=== PATIENT | female | born 1945 | race Caucasian/White ===

== ENCOUNTER 2017-10-03 15:13 | Outpatient (CLI) | payer MEDICARE, BC | END 2017-10-03 15:14 | disposition home or self-care (01) | LOC: BICRAD 15:13 | PROVIDERS: ATTEND Internal Medicine Rheumatology | DX: M47.812 Spondylosis without myelopathy or radiculopathy, cervical region (principal); M17.0 Bilateral primary osteoarthritis of knee; M89.9 Disorder of bone, unspecified | CPT/HCPCS: 72100; 73565 ==

== ENCOUNTER 2017-12-11 15:33 | Outpatient (CLI) | payer MEDICARE, BC ==
[~2017-12-11 15:33] MED LIST: Gadobenate Dimeglumine 529 MG/1 ML (20ML VIAL) ONE
--- NOTE | 2017-12-11 16:54 | MRI ---
MRI OF THE LUMBAR SPINE NONCONTRAST: History: Low back pain. FINDINGS: Images including the retroperitoneum show cysts of the kidneys. The conus medullaris has a normal minor earance. Vertebral body heights are maintained. 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 There is minimal degenerative spondylolisthe sis at the lumbosacral junction. At the L4-5 level, there is minimal disc bulge. Posterior ligamentous thickening and facet joint hype rtrophy results in mild stenosis of the central canal and moderate stenosis of each neural foramen. There is mild foraminal stenosis at the L3-4 level. IMPRESSION: Mild to moderate degenerative changes of the lower lumbar spine as detailed above, with stenoses grea test at the L4-5 level. Clinical correlation regarding pain at each L4 dermatome is required. POS: [facility]
--- NOTE | 2017-12-11 17:32 | MRI ---
CERVICAL SPINE MRI WITH AND WITHOUT CONTRAST: Clinical history: Cervical radiculopathy. FINDINGS: There is susceptibility artifact related to anterior fusion at the C5-6 segments. There is no acute m arrow edema. Craniocervical junction is intact. Evaluation of the cervical spinal cord reveals no int rinsic intramedullary, pathologic enhancement or obvious expansile lesion. No significant central canal stenosis at C1-2 or C2-3 levels. C3-4: There is a broad based disc osteophyte and a slight degree of retrolisthesis of C3 on C4. This results in a right asymmetric mild degree of effacement of the ventral thecal sac content. Mild right foraminal narrowing is present. No high grade left foraminal stenosis. C4-5: Central disc osteophyte effaces the ventral thecal sac. There is susceptibility from adjacent h ardware. There is mild left foraminal narrowing. No high grade right foraminal stenosis. C5-6: There is a left asymmetric osteophyte ridge with a focal osteophyte at the left paracentral zon e which does result in mass effect upon the left hemicord with cord flattening, moderate in degree. T here is moderate left foraminal stenosis. No high grade right foraminal stenosis. C6-7: Left asymmetric disc osteophyte complex is present. Suggestion of a superimposed left subarticu lar disc protrusion. This crowds the adjacent left nerve root with moderate narrowing of the left sub articular zone and mild to moderate left foraminal narrowing. No high grade right foraminal stenosis. There is moderate stenosis of the central canal with ventral cord effacement. C7-T1: No high grade central canal or foraminal stenosis. IMPRESSION: Multilevel degenerative change of the post-operative cervical spine as outline above, which is most p ronounced at the operative site of C5-6 with associated left hemicord mass effect, as well as the sub jacent C6-7 level with associated ventral cord flattening/mass effect. POS: [facility]
--- NOTE | 2017-12-11 18:46 | RAD ---
THREE VIEWS CERVICAL SPINE INCLUDING FLEXION AND EXTENSION VIEWS: Date: 12-11-17 History: Cervical radiculopathy. History of prior surgery. Comparison: 06-09-14 FINDINGS: There has been interval post-surgical changes related to anterior cervical fusion with an anterior pl ate and screws transfixing C5-6 level with intradiscal prosthesis in place. No hardware complication is seen. Osteophytes are seen anteriorly at the C3-4 and C4-5 as well as the C6-7 levels. There is mi ld narrowing of the C3-4 intervertebral disc space. C1 to the cervicothoracic junction is seen on the lateral view and there is no evidence of subluxation. No obvious fracture is seen on provided latera l images. No abnormal translational motion is seen between the flexion and extension views of the cer vical spine. The prevertebral soft tissues are within normal limits. IMPRESSION: 1. Post-surgical changes related to anterior cervical fusion at the C5-6 level. 2. Degenerative changes above and below the level of the post-surgical change. 3. No fracture or subluxation seen on the provided images. POS: [facility]
--- NOTE | 2017-12-11 18:50 | RAD ---
FOUR VIEWS LUMBAR SPINE: Date: 12-11-17 History: Lumbar radiculopathy. FINDINGS: There are five non-rib bearing vertebral bodies. Vertebral body heights are within normal limits. The re is slight grade I anterolisthesis of L5 on S1 with slight narrowing of the intervertebral disc spa ce at this level as well. The remaining intervertebral disc spaces are within normal limits. Facet de generative changes are seen in the lower lumbar spine. There is no abnormal translational motion seen between the flexion and extension views. Vascular calcifications are seen abdominal aorta. Radiopaqu e suture material overlies the left abdomen. IMPRESSION: 1. Degenerative changes in the lower lumbar spine with grade I anterolisthesis of L5 on S1. No abnorm al translational motion is seen between the flexion and extension views of the lumbar spine. POS: [facility]
== END 2017-12-11 15:34 | disposition home or self-care (01) ==
LOC: MRI 15:33
PROVIDERS: ATTEND Physician Assistant Surgical
DX: M47.26 Other spondylosis with radiculopathy, lumbar region (principal); M47.22 Other spondylosis with radiculopathy, cervical region; Z98.890 Other specified postprocedural states; Z98.1 Arthrodesis status
CPT/HCPCS: 72050; 72120; 72148; 72156; 82565; A9579

== ENCOUNTER 2017-12-22 08:26 | Outpatient (CLI) | payer MEDICARE, BC ==
--- NOTE | 2017-12-22 09:55 | CT ---
CT CERVICAL SPINE WITHOUT CONTRAST: DATE: 12/22/17. COMPARISON: None. HISTORY: Cervical radiculopathy, neck pain between shoulder blades, bilateral hand numbness. TECHNIQUE: Serial axial CT imaging at 2 mm intervals from the skull base through the lung apices without contras t. Coronal and sagittal reformatted imaging obtained. FINDINGS: The imaged lung apices are unremarkable. Evaluation for central canal and/or neural foraminal stenosis is limited on routine CT. There is polypoid [id number] thickening of the maxillary sinus on the left. The C1 ring is intact. The craniocervical junction is within normal limits. There is mild degenerative change at the atlant oaxial interspace. The occipital condyles, dens, and C1-2 articulation demonstrate no acute findings. At C5-6, there is anterior diskectomy and fusion hardware present. No evidence of a hardware failure is noted. There is no significant anterolisthesis or retrolisthesis seen. No prevertebral soft tissue abnormal ity noted. C2-3: No osseous cause of significant central canal or neural foraminal stenosis. C3-4: Mild bilateral facet and uncovertebral osteophyte formation, right greater than left. Mild di sk space narrowing and anterior osteophyte formation. No osseous cause of significant central canal or neural foraminal stenosis. C4-5: Anterior osteophyte formation noted. No osseous cause of significant central canal or neural foraminal stenosis. C5-6: Mild posterior osteophyte noted in left paracentral region. Mild bilateral uncovertebral oste ophyte formation noted. No osseous cause of significant central canal or neural foraminal stenosis. C6-7: No osseous cause of significant central canal or neural foraminal stenosis. C7-T1: No osseous cause of significant central canal or neural foraminal stenosis. No acute fracture or dislocation. No suspicious lytic or blastic bone lesion. A medialized retropharyngeal right internal carotid artery noted. IMPRESSION: Multilevel degenerative change noted. POS: [facility]
== END 2017-12-22 08:27 | disposition home or self-care (01) ==
LOC: TBSIIMAG 08:26
PROVIDERS: ATTEND Surgery
DX: M47.22 Other spondylosis with radiculopathy, cervical region (principal)
CPT/HCPCS: 72125

== ENCOUNTER 2018-02-27 13:00 | Outpatient (CLI) | payer MEDICARE, BC ==
[2018-02-27 14:28] LABS: Hemoglobin 11.3 g/dL (12.0-16.0); Mean Corpuscular HGB CONC 31.3 g/dL (32.0-36.0); Mean Corpuscular Hemoglobin 28.8 pg (27.0-31.0); Mean Corpuscular Volume 91.8 fl (81.0-99.0); Platelet Count 223 thou/uL (130-400); Red Blood Cell (RBC) Count 3.93 mill/uL (4.20-5.40); White Blood Cell (WBC) Count 7.3 thou/uL (4.8-10.8)
[2018-02-27 14:42] LABS: PTT 25.4 SEC (22.9-36.1); Prothrombin Time 12.8 SEC (12.0-14.7)
[2018-02-27 14:43] LABS: Anion Gap 11 mmol/L (10-20); BUN (Urea Nitrogen) 14 mg/dL (9.8-20.1); Calc. Creatinine Clearance 0 mL/min (70-130); Calcium 8.9 mg/dL (7.8-10.44); Carbon Dioxide 26 mmol/L (23-31); Chloride 108 mmol/L (98-107); Estimated GFR-MDRD 66; Glucose 91 mg/dL (83-110); Potassium 4.1 mmol/L (3.5-5.1); Sodium 141 mmol/L (136-145)
--- NOTE | 2018-02-27 16:46 | EKG ---
Test Reason : Blood Pressure : / mmHG Vent. Rate : 070 BPM Atrial Rate : 070 BPM P-R Int : 172 ms QRS Dur : 086 ms QT Int : 416 ms P-R-T Axes : 042 038 025 degrees QTc Int : 449 ms Normal sinus rhythm Cannot rule out Anterior infarct , age undetermined ( may be lead placement artifact ) Abnormal ECG When compared with ECG of 07-JUL-2014 14:18, No significant change was found Confirmed by DR. Shannan ANNE ([id number]) on 02/27/2018 4:46:04 PM Referred By: ROSA Confirmed By:DR. Shannan ANNE
== END 2018-02-27 13:01 | disposition home or self-care (01) ==
LOC: LABBT 13:00
PROVIDERS: ATTEND Surgery
DX: Z01.818 Encounter for other preprocedural examination (principal); M54.12 Radiculopathy, cervical region
CPT/HCPCS: 80048; 85027; 85610; 85730; 93005; 93010

== ENCOUNTER 2018-02-27 13:15 | Inpatient (IN) | payer MEDICARE, BC ==
[2018-02-27 13:23] VITALS: BMI 26.5
[2018-03-08] MEDS ORDERED: Fentanyl 100 MCG/2 ML VIAL ONE (06:13)
[2018-03-08] MEDS ORDERED: Ondansetron HCl/PF 4 MG/2 ML Vial ONE ×2 (06:14→13:04)
[2018-03-08] MEDS ORDERED: Midazolam HCl 2 mg/2 ml Vial ONE ×2 (06:23→06:51)
[2018-03-08] MEDS ORDERED: CEFAZOLIN/Water 2 GM/20 ML SYRINGE ONE (06:26)
[2018-03-08] MEDS ORDERED: Thrombin 5000 UNITS/5 ML VIAL ONE (06:29)
[2018-03-08] MEDS ORDERED: Sodium Chloride 0.9% 10 ML ONE (06:29)
[2018-03-08] MEDS ORDERED: Milk Of Magnesia 30 ML UDCUP PO PRN (10:21)
[2018-03-08] MEDS ORDERED: Mag-Al 1200 mg/1200 mg/30 ML UDCUP PO PRN (10:21)
[2018-03-08] MEDS ORDERED: Fleet Enema 133 ML BOT PR PRN (10:21)
[2018-03-08] MEDS ORDERED: Bisacodyl 10 MG SUPP PR PRN (10:21)
[2018-03-08] MEDS ORDERED: HYDROcodone/Acetaminophen 7.5/325 mg Tablet PO PRN (10:21)
[2018-03-08] MEDS ORDERED: Acetaminophen 325 MG TAB PO PRN (10:21)
[2018-03-08] MEDS ORDERED: tiZANidine HCl 4 MG TAB PO PRN (10:21)
[2018-03-08] MEDS ORDERED: Cyclobenzaprine 10 MG TAB PO PRN (10:24)
[2018-03-08] MEDS ORDERED: Promethazine HCl 25 MG/ML VIAL SLOW IVP PRN (10:27)
[2018-03-08] MEDS ORDERED: Promethazine HCl 25 MG/ML VIAL IM PRN (10:27)
[2018-03-08] MEDS ORDERED: Ondansetron HCl/PF 4 MG/2 ML Vial IVP PRN (10:27)
--- NOTE | 2018-03-08 11:50 | OP ---
DATE OF PROCEDURE: 03/08/2018 OR: OR #11. WOUND TYPE: Type 1 wound. SURGEON: Gino Allan M.D. TECHNICAL TESTING ENGINEER: Yonis Godinez PA-C PREPROCEDURE DIAGNOSES: Distal adjacent segment stenosis with history of C5-C6 ACDF, now with recurr ent neck and arm pain. POSTPROCEDURE DIAGNOSES: Distal adjacent segment stenosis with history of C5-C6 ACDF, now with recur rent neck and arm pain. PROCEDURE: 1. Reopening of a prior C5-C6 wound with exploration of spinal fusion C5-C6 and removal of C5-C6 floresita te. 2. Anterior C6-C7 diskectomy for decompression of spinal cord and nerve roots with placement of inte rbody spacer packed with local bone autograft obtained from same incision and allograft for arthrodes is. 3. Anterior cervical plate and screw fixation, C6-C7. 4. Use of operative microscope for microdissection. PROCEDURE: After informed consent was obtained from the patient, the patient brought to OR. Proper patient pause and identification was carried out. She was placed in excellent endotracheal anesthesi a and positioned supine on the OR table. The prior right C5-C6 wound was identified and this region was sterilely cleansed, prepared, and draped. Proper patient pause and identification was again [place] ied out. The wound was then opened with a combination of sharp, monopolar and blunt dissection proce eded through scar and identified planes to allow us to approach the C5-C6 segment. The plate was rishi ntified and the screws removed and the plate removed. I then assessed the fusion at C5-C6 and it con firmed that the CT and x-rays demonstrated that the patient had fused and had no evidence of abnormal movement at C5-C6. I then turned our attention to the C6-C7 with retractors placed. Microscope was brought in the field and distraction at C6-C7 then occurred. A diskectomy was performed at C6-C7 wi th excellent decompression of the common dural tube and the nerve roots. Interbody spacer of appropr iate dimension was then placed at C6-C7 for fusion. This was packed with local bone autograft obtain ed from same incision and allograft for arthrodesis. I then removed the microscope and a plate and screw fixation at C6-C7 then occurred. Copious irrigation occurred throughout. The wound was then c losed in anatomic layers following meticulous hemostasis over a drain. The patient then emerged from anesthesia.
[2018-03-08] MEDS: Morphine 4 MG/ML VIAL SLOW IVP PRN ×2 (12:26→16:08)
[2018-03-08] MEDS: Sodium Chloride 0.9% 1,000 ML IV SCH (12:27)
[2018-03-08] MEDS ORDERED: PROPOFOL 200 MG/20 ML VIAL ONE (13:04)
[2018-03-08] MEDS ORDERED: Lidocaine 1% PF 5 ML VIAL ONE (13:04)
[2018-03-08] MEDS ORDERED: Glycopyrrolate 0.2 MG/ML 5 ML SYRINGE ONE (13:04)
[2018-03-08] MEDS ORDERED: Dexamethasone 20 MG/5 ML VIAL ONE (13:04)
[2018-03-08] MEDS: CEFAZOLIN/Water 2 GM/20 ML SYRINGE SLOW IVP SCH (16:08)
[2018-03-08] MEDS: traMADol HCl 50 MG TAB PO PRN (18:23)
[2018-03-08] MEDS ORDERED: traZODone HCl 50 MG TAB PO SCH (21:00)
[2018-03-08] MEDS ORDERED: TRAZODONE HCL PO SCH (21:00)
[2018-03-08] MEDS ORDERED: Simvastatin 5 MG TAB PO SCH (21:00)
[2018-03-09] MEDS: CEFAZOLIN/Water 2 GM/20 ML SYRINGE SLOW IVP SCH ×2 (00:30→09:23)
[2018-03-09] MEDS: traMADol HCl 50 MG TAB PO PRN ×2 (00:30→06:53)
[2018-03-09] MEDS ORDERED: Levothyroxine Sodium 75 MCG TAB PO SCH (06:00)
[2018-03-09] MEDS: Sodium Chloride 0.9% 1,000 ML IV SCH (06:52)
[2018-03-09 07:39] VITALS: BP 118/69; TEMP 98.2
[2018-03-09] MEDS ORDERED: Calcium Carbonate 500 MG TAB PO SCH (09:00)
[2018-03-09] MEDS ORDERED: Ipratropium Bromide 0.06% Nasal Inhaler 15ml EA NARE SCH (09:00)
[2018-03-09] MEDS ORDERED: Escitalopram Oxalate 20 mg Tablet PO SCH (09:00)
[2018-03-09] MEDS ORDERED: Fish Oil 1,000 MG CAP PO SCH (09:00)
[2018-03-09] MEDS ORDERED: Folic Acid 1 MG TAB PO SCH (09:00)
[2018-03-09] MEDS ORDERED: Multivit, Chewable SF 1 TAB PO SCH (09:00)
[2018-03-09] MEDS ORDERED: Stress 600 With Zinc 1 TAB PO SCH (09:00)
--- NOTE | 2018-03-09 13:56 | DIS ---
DATE OF ADMISSION: 03/08/2018 DATE OF DISCHARGE: 03/09/2018 DISCHARGE DIAGNOSIS: Include cervical stenosis with right arm radiculopathy. HISTORY: Ms. Benavides has postoperative day #1, having undergone revision ACDF including removal of floresita te at C5-C6 and new ACDF at C6-C7 with a new hardware at this level. The patient states that she has some numbness and tingling into the fingertips in the right hand, but the right upper extremity symp toms she experienced preoperatively has now completely resolved. She does have some hoarseness and s ome difficulty with swallowing, but is tolerating clear liquids and swallowing pills. She is wearing her collar as directed. Her drain output 20 mL and we will remove this and plan for discharge today . At the time of discharge, the patient was doing well postoperatively and pleased with her neurosur gical outcome. Appropriate outpatient followups were scheduled and patient's education was provided to the patient.
== END 2018-03-09 11:38 | disposition home or self-care (01) | DRG 473 ==
LOC: SURG A 03-08 05:35
PROVIDERS: ADMIT Surgery; ATTEND Surgery
PROC: 0RG10A0 Fusion of Cervical Vertebral Joint with Interbody Fusion Device, Anterior Approach, Anterior Column, Open Approach (ICD-10-PCS; principal; 2018-03-08)
PROC: 0RP104Z Removal of Internal Fixation Device from Cervical Vertebral Joint, Open Approach (ICD-10-PCS; 2018-03-08)
PROC: 0RB30ZZ Excision of Cervical Vertebral Disc, Open Approach (ICD-10-PCS; 2018-03-08)
PROC: 00NW0ZZ Release Cervical Spinal Cord, Open Approach (ICD-10-PCS; 2018-03-08)
PROC: 01N10ZZ Release Cervical Nerve, Open Approach (ICD-10-PCS; 2018-03-08)
DX: M48.02 Spinal stenosis, cervical region (principal); M54.12 Radiculopathy, cervical region; Z88.5 Allergy status to narcotic agent; Z79.899 Other long term (current) drug therapy
CPT/HCPCS: 76001; A4216; C1713; C1776; J1100; J2001; J2250; J2270; J2405; J2704; J3010; J3490

== ENCOUNTER 2018-04-18 10:09 | Outpatient (CLI) | payer MEDICARE, BC ==
--- NOTE | 2018-04-18 11:39 | RAD ---
FOUR VIEWS CERVICAL SPINE: History: Cervical radiculopathy. M54.12 Comparison: 06-26-15 FINDINGS: AP, lateral, swimmer's and open mouth odontoid view of the cervical spine obtained. Images demonstrate ACDF plates and screws fusing the C6-7 levels anteriorly. There is also old fusion of the C5-6 vertebral levels. Anterior osteophytes seen in the C3 and C4 levels. IMPRESSION: C5, C6, and C7 cervical spine fusion. No acute abnormalities seen. No significant interval changes no chet since the previous exam from 06-26-15. POS: [facility]
== END 2018-04-18 10:10 | disposition home or self-care (01) ==
LOC: TBSIIMAG 10:09
PROVIDERS: ATTEND Surgery
DX: M54.12 Radiculopathy, cervical region (principal); Z98.1 Arthrodesis status
CPT/HCPCS: 72040

== ENCOUNTER 2018-07-11 14:32 | Outpatient (CLI) | payer MEDICARE, BC | END 2018-07-11 14:33 | disposition home or self-care (01) | LOC: BICMRI 14:32 | PROVIDERS: ATTEND Psychiatry & Neurology Neurology | DX: R26.9 Unspecified abnormalities of gait and mobility (principal) | CPT/HCPCS: 70553; 82565; A9579 ==

== ENCOUNTER 2018-09-29 20:15 | Observation (INO) | payer MEDICARE, BC ==
[2018-09-29 21:08] LABS: #Eosinphils 0.1 thou/uL (0.0-0.7); #Lymphocytes 1.8 thou/uL (1.20-3.40); #Monocytes 0.4 thou/uL (0.11-0.59); #Neutrophils 3.6 thou/uL (1.40-6.50); %Basophils 0.8 % (0.0-1.0); %Eosinophils 1.1 % (0.0-10.0); %Lymphocytes 30.6 % (21.0-51.0); %Monocytes 6.7 % (0.0-10.0); %Neutrophils 60.7 % (42.0-75.0); Hemoglobin 11.8 g/dL (12.0-16.0); Mean Corpuscular HGB CONC 32.5 g/dL (32.0-36.0); Mean Corpuscular Hemoglobin 31.6 pg (27.0-31.0); Mean Corpuscular Volume 97.2 fL (78.0-98.0); Platelet Count 209 thou/uL (130-400); RBC Distribution Width 11.9 % (11.5-14.5); Red Blood Cell (RBC) Count 3.73 mill/uL (4.20-5.40); White Blood Cell (WBC) Count 5.9 thou/uL (4.8-10.8)
--- NOTE | 2018-09-29 21:23 | RAD ---
CHEST ONE VIEW: 09/29/18 INDICATION: Chest pain. COMPARISON: None. Comparison from a prior PA view of the chest with left rib series dated 02/02/17 was made. FINDINGS: No focal consolidation, pleural effusion, or pneumothorax is evident. Thoracolumbar scoliosis is camille lar appearing. Hear size is normal. No acute osseous abnormality is evident. ACDF is again seen invol ving the lower cervical spine. IMPRESSION: No acute cardiopulmonary abnormality. POS: [facility]
[2018-09-29 21:32] LABS: ALT (SGPT) 20 U/L (8-55); AST (SGOT) 24 U/L (5-34); Albumin 3.8 g/dL (3.4-4.8); Alkaline Phosphatase 82 U/L (40-150); Anion Gap 11 mmol/L (10-20); BUN (Urea Nitrogen) 17 mg/dL (9.8-20.1); Bilirubin, Total 0.3 mg/dL (0.2-1.2); Calc. Creatinine Clearance 0 mL/min (70-130); Calcium 8.8 mg/dL (7.8-10.44); Carbon Dioxide 26 mmol/L (23-31); Chloride 106 mmol/L (98-107); Estimated GFR-MDRD 66; Globulin 2.9 g/dL (2.4-3.5); Glucose 96 mg/dL (83-110); Lipase 170 U/L (8-78); Potassium 3.8 mmol/L (3.5-5.1); Protein, Total 6.7 g/dL (6.0-8.3); Sodium 139 mmol/L (136-145)
[2018-09-29 21:36] LABS: CKMB 1.5 ng/mL (0-6.6); Troponin I Less than 0.010 ng/mL (< 0.028)
[2018-09-30] MEDS: Sodium Chloride 0.9% 1,000 ML IV SCH ×3 (00:05→04:14)
[2018-09-30 00:14] VITALS: BMI 25.5
[2018-09-30 01:00] LABS: Troponin I Less than 0.010 ng/mL (< 0.028)
[2018-09-30] MEDS ORDERED: traZODone HCl 50 MG TAB PO SCH ×2 (01:15→21:00)
[2018-09-30] MEDS ORDERED: Oxybutynin 5 MG TAB PO SCH ×2 (01:15→09:00)
[2018-09-30 04:15] LABS: Troponin I Less than 0.010 ng/mL (< 0.028)
[2018-09-30 08:09] VITALS: TEMP 98.8
[2018-09-30 10:12] LABS: #Eosinphils 0.1 thou/uL (0.0-0.7); #Lymphocytes 2.5 thou/uL (1.20-3.40); #Monocytes 0.4 thou/uL (0.11-0.59); #Neutrophils 2.8 thou/uL (1.40-6.50); %Basophils 0.8 % (0.0-1.0); %Eosinophils 1.6 % (0.0-10.0); %Lymphocytes 42.8 % (21.0-51.0); %Monocytes 6.5 % (0.0-10.0); %Neutrophils 48.3 % (42.0-75.0); Hemoglobin 10.6 g/dL (12.0-16.0); Mean Corpuscular HGB CONC 32.1 g/dL (32.0-36.0); Mean Corpuscular Hemoglobin 31.4 pg (27.0-31.0); Mean Corpuscular Volume 97.9 fL (78.0-98.0); Mean Platelet Volume 8.5 fL (7.4-10.4); Platelet Count 192 thou/uL (130-400); RBC Distribution Width 11.8 % (11.5-14.5); Red Blood Cell (RBC) Count 3.37 mill/uL (4.20-5.40); White Blood Cell (WBC) Count 5.7 thou/uL (4.8-10.8)
[2018-09-30 10:36] LABS: Anion Gap 13 mmol/L (10-20); BUN (Urea Nitrogen) 18 mg/dL (9.8-20.1); Calc. Creatinine Clearance 75 mL/min (70-130); Calcium 8.2 mg/dL (7.8-10.44); Carbon Dioxide 23 mmol/L (23-31); Chloride 108 mmol/L (98-107); Estimated GFR-MDRD 83; Glucose 90 mg/dL (83-110); Lipase 136 U/L (8-78); Potassium 3.7 mmol/L (3.5-5.1); Sodium 140 mmol/L (136-145)
[2018-09-30 12:07] VITALS: BP 123/58
--- NOTE | 2018-10-06 12:12 | EKG ---
Test Reason : CP Blood Pressure : / mmHG Vent. Rate : 072 BPM Atrial Rate : 072 BPM P-R Int : 166 ms QRS Dur : 088 ms QT Int : 388 ms P-R-T Axes : 052 035 048 degrees QTc Int : 424 ms Normal sinus rhythm Normal ECG Confirmed by NATHAN ALEMAN DO ([id number]), brands editor ANGELICA TAVERA ([id number]) on 10/06/2018 12:12:08 PM Referred By: [facility]SH Confirmed By:NATHAN ALEMAN DO
== END 2018-09-30 13:34 | disposition home or self-care (01) ==
LOC: ERS 20:15 → 2SW 21:53
PROVIDERS: ADMIT Internal Medicine; ATTEND Internal Medicine
DX: R07.89 Other chest pain (principal); R79.89 Other specified abnormal findings of blood chemistry; E11.9 Type 2 diabetes mellitus without complications; E03.9 Hypothyroidism, unspecified; I10 Essential (primary) hypertension; F41.9 Anxiety disorder, unspecified; F32.9 Major depressive disorder, single episode, unspecified; F43.10 Post-traumatic stress disorder, unspecified; Z79.899 Other long term (current) drug therapy; Z88.5 Allergy status to narcotic agent; Z98.1 Arthrodesis status; Z98.890 Other specified postprocedural states
CPT/HCPCS: 71045; 80048; 80053; 82553; 83690 ×2; 84484 ×3; 85025 ×2; 93005; 96360; 96361; 99285; G0378 ×2; 36415

== ENCOUNTER → 2023-08-02 | Day surgery (SDC) | payer MEDICARE, BC | LOC: SDC 13:33 | PROVIDERS: ATTEND Internal Medicine Gastroenterology | PROC: 4A0B7BZ Measurement of Gastrointestinal Pressure, Via Natural or Artificial Opening (ICD-10-PCS; principal; 2023-08-02) | DX: R13.10 Dysphagia, unspecified (principal); K21.9 Gastro-esophageal reflux disease without esophagitis; F41.9 Anxiety disorder, unspecified; M19.90 Unspecified osteoarthritis, unspecified site; F32.A Depression, unspecified; Z98.49 Cataract extraction status, unspecified eye; Z98.51 Tubal ligation status; Z88.5 Allergy status to narcotic agent; Z79.899 Other long term (current) drug therapy | CPT/HCPCS: 91010 ==

== ENCOUNTER 2025-07-21 12:40 | Inpatient (IN) | payer MEDICARE, BC ==
[~2025-07-21 12:40] MED LIST changes: -Gadobenate Dimeglumine 529 MG/1 ML (20ML VIAL) ONE; +Iopamidol-370 76% 500 ML MDV (1 ML CHARGE) ONE
[2025-07-21 14:17] LABS: Bacteria/HPF None Seen HPF (None Seen); CAUTI Indications for Culture Alt mental st,lethar; Glucose, Urine (Dipstick) Normal (Negative); Leukocyte Negative Leu/uL (Negative); Protein, Urine (Dipstick) Negative (Neg-Trace); RBC/HPF 0-3 HPF (0-3); Specific Gravity, Urine 1.007 (1.002-1.036); WBC/HPF 0-3 HPF (0-3)
[2025-07-21 14:29] LABS: Urine Culture Reflex No No
[2025-07-21 14:59] LABS: Hemoglobin 9.9 g/dL (12.0-16.0); Platelet Count 343 10x3/uL (130-400)
[2025-07-21 15:03] LABS: #Basophils 0.04 10x3/uL (0.0-0.2); #Eosinophils 0.21 10x3/uL (0.0-0.7); #Monocytes 0.68 10x3/uL (0.11-0.59); #Neutrophils 5.04 10x3/uL (1.40-6.50); %Basophils 0.4 % (0.0-1.0); %Eosinophils 2.3 % (0.0-10.0); %Lymphocytes 33.8 % (21.0-51.0); %Monocytes 7.5 % (0.0-10.0); %Neutrophils 55.8 % (42.0-75.0); Hematocrit 33.3 % (36.0-47.0); Mean Corpuscular Hemoglobin 25.9 pg (27.0-31.0); Mean Corpuscular Volume 87.2 fL (78.0-98.0); Red Blood Cell (RBC) Count 3.82 mill/uL (4.20-5.40); White Blood Cell (WBC) Count 9.05 10x3/uL (4.8-10.8)
[2025-07-21 15:16] LABS: INR-International Normal Ratio 1.0; Prothrombin Time 13.0 sec (12.0-14.7)
[2025-07-21 15:17] LABS: PTT 25.7 sec (22.9-36.1)
[2025-07-21 15:20] LABS: ALT (SGPT) 10 U/L (Less than 34); AST (SGOT) 18 U/L (11-34); Albumin 3.5 g/dL (3.1-4.5); Alkaline Phosphatase 67 U/L (40-110); Anion Gap 11 mmol/L (10-20); BUN (Urea Nitrogen) 11 mg/dL (9.8-20.1); Bilirubin, Total 0.3 mg/dL (0.3-1.2); Calc. Creatinine Clearance 0 mL/min (70-130); Calcium 8.2 mg/dL (7.8-10.44); Carbon Dioxide 29 mmol/L (23-31); Chloride 103 mmol/L (98-107); Globulin 2.8 g/dL (2.4-3.5); Glucose 88 mg/dL (83-110); Potassium 3.8 mmol/L (3.5-5.1); Sodium 139 mmol/L (136-145)
[2025-07-21] MEDS ORDERED: Aspirin Chewable 81 MG TAB ONE (17:23)
[2025-07-21] MEDS ORDERED: Senokot S 8.6-50 MG TAB PO PRN (20:58)
[2025-07-21] MEDS ORDERED: ABALOPARATIDE SC SCH (21:00)
[2025-07-21] MEDS: Oxybutynin 5 MG TAB PO SCH (22:55)
[2025-07-21] MEDS: Acetaminophen 325 MG TAB PO SCH (22:56)
[2025-07-21] MEDS: Pantoprazole 40 MG DR.TAB PO SCH (22:56)
[2025-07-21] MEDS: Melatonin 3 MG TAB PO PRN (22:58)
[2025-07-21 23:10] VITALS: BMI 26.8
[2025-07-22 03:32] LABS: #Basophils 0.06 10x3/uL (0.0-0.2); #Eosinophils 0.31 10x3/uL (0.0-0.7); #Monocytes 0.71 10x3/uL (0.11-0.59); #Neutrophils 4.48 10x3/uL (1.40-6.50); %Basophils 0.6 % (0.0-1.0); %Eosinophils 3.2 % (0.0-10.0); %Lymphocytes 42.8 % (21.0-51.0); %Monocytes 7.3 % (0.0-10.0); %Neutrophils 45.9 % (42.0-75.0); Hematocrit 33.2 % (36.0-47.0); Hemoglobin 9.7 g/dL (12.0-16.0); Mean Corpuscular Hemoglobin 25.6 pg (27.0-31.0); Mean Corpuscular Volume 87.6 fL (78.0-98.0); Platelet Count 349 10x3/uL (130-400); Red Blood Cell (RBC) Count 3.79 mill/uL (4.20-5.40); White Blood Cell (WBC) Count 9.75 10x3/uL (4.8-10.8)
[2025-07-22 04:02] LABS: ALT (SGPT) 11 U/L (Less than 34); AST (SGOT) 16 U/L (11-34); Albumin 3.3 g/dL (3.1-4.5); Alkaline Phosphatase 62 U/L (40-110); Anion Gap 12 mmol/L (10-20); BUN (Urea Nitrogen) 11 mg/dL (9.8-20.1); Bilirubin, Total 0.3 mg/dL (0.3-1.2); Calc. Creatinine Clearance 62 mL/min (70-130); Calcium 8.2 mg/dL (7.8-10.44); Carbon Dioxide 28 mmol/L (23-31); Chloride 104 mmol/L (98-107); Globulin 2.7 g/dL (2.4-3.5); Glucose 85 mg/dL (83-110); Magnesium 1.9 mg/dL (1.6-2.6); Potassium 3.9 mmol/L (3.5-5.1); Sodium 140 mmol/L (136-145)
[2025-07-22] MEDS: Magnesium 2 GM/50 ML(in water) Premix IVPB SCH (05:28)
[2025-07-22] MEDS: Folic Acid 1 MG TAB PO SCH (08:48)
[2025-07-22] MEDS: BuPROPion XL 150 MG ER.TAB PO SCH (08:48)
[2025-07-22] MEDS: Enoxaparin 40 MG (0.4 mL) SYRINGE SC SCH (08:49)
[2025-07-22] MEDS: Ondansetron PF 4 MG/2 ML Vial IVP PRN (12:23)
[2025-07-22] MEDS: Aspirin 81 mg Enteric Coated Tablet PO SCH (12:24)
[2025-07-22] MEDS: Pancrelipase DR 12,000 1 CAP PO SCH (18:26)
[2025-07-22] MEDS: Gabapentin 300 MG CAP PO SCH (20:07)
[2025-07-22] MEDS: Primidone 50 MG TAB PO SCH (20:07)
[2025-07-22] MEDS: Memantine 5 MG TAB PO SCH (20:09)
[2025-07-23] MEDS: Aspirin 81 mg Enteric Coated Tablet PO SCH (08:58)
[2025-07-23] MEDS: Mirabegron ER 25 MG ER.TAB PO SCH (08:58)
[2025-07-23] MEDS: Pancrelipase DR 12,000 1 CAP PO SCH (09:00)
[2025-07-23] MEDS: Multivit, Chewable SF 1 TAB PO SCH (11:51)
[2025-07-23 14:44] VITALS: BP 134/75; TEMP 98.5
== END 2025-07-23 18:34 | disposition home or self-care (01) | DRG 93 ==
LOC: ERS 12:40 → ERHOLD 17:22 → 2SE 21:18 → OBSVTOIN 07-22 11:04
PROVIDERS: ADMIT Family Medicine; ATTEND Student in an Organized Health Care Education/Training Program
DX: R29.818 Other symptoms and signs involving the nervous system (principal); F41.9 Anxiety disorder, unspecified; I95.9 Hypotension, unspecified; F32.A Depression, unspecified; K21.9 Gastro-esophageal reflux disease without esophagitis; Z79.899 Other long term (current) drug therapy; E03.9 Hypothyroidism, unspecified; M81.0 Age-related osteoporosis without current pathological fracture; Z88.5 Allergy status to narcotic agent; D64.9 Anemia, unspecified
CPT/HCPCS: 36415; 36416; 70496; 70498; 70551; 71045; 74018; 80053; 81001; 83036; 83735; 84443; 84484; 85025; 85610; 85730; 93005; 93306; 93970; 94760; 96372; 96374; G0378; J1650; J3475; Q9967